=== PATIENT | male | born 1965 | race Two or more races ===

== ENCOUNTER 2024-06-04 10:53 | Emergency (ER) | payer OTHER ==
[~2024-06-04] VITALS: Ht 182.9 cm; Wt 117.0 kg
[~2024-06-04 10:53] MED LIST: CIPRO500 MG PO; FLECAINIDE ACET50 MG PO; MEDROLPACK PO; NORFLEX100MG PO; TOPROL XL50 M1 PO
[2024-06-04] MEDS ORDERED: ACETAMINOPHEN 500 MG GEL..CAP PO ONE ×2 (11:38→11:45)
== END 2024-06-04 13:52 | disposition home or self-care (01) ==
LOC: ER 10:53
DX: S46.211A Strain of muscle, fascia and tendon of other parts of biceps, right arm, initial encounter (principal); W18.39XA Other fall on same level, initial encounter; Y93.E9 Activity, other interior property and clothing maintenance; Y92.018 Other place in single-family (private) house as the place of occurrence of the external cause; Y99.9 Unspecified external cause status; I10 Essential (primary) hypertension; Z88.6 Allergy status to analgesic agent

== ENCOUNTER 2025-01-09 20:03 | Emergency (ER) | payer OTHER ==
[~2025-01-09] VITALS: Ht 182.9 cm; Wt 118.8 kg
[2025-01-09] MEDS ORDERED: CIPROFLOXACIN IN 5 % DEXTROSE 400 MG/200 ML PIGGYBAG IV ONE ×2 (20:42→20:45)
[2025-01-09] MEDS ORDERED: FAMOTIDINE/PF 20 MG/2 ML VIAL ONE (20:43)
[2025-01-09] MEDS ORDERED: METRONIDAZOLE/SODIUM CHLORIDE 500 MG/100 ML PIGGYBACK IV ONE ×2 (20:43→20:45)
[2025-01-09] MEDS ORDERED: 0.9 % SODIUM CHLORIDE 1,000 ML IV ONE (20:45)
[2025-01-09] MEDS ORDERED: FAMOtidine 10 MG/ML (4ML VIAL) IV ONE (20:45)
[2025-01-09 20:58] LABS: HEMATOCRIT 44.4 % (39.0-48.0); HEMOGLOBIN 15.2 g/dL (13-16.00); MEAN CELL VOLUME 92.3 fL (80.0-100.00); MEAN CORPUSCULAR HEMOGLOBIN 31.7 pg (27.00-32.0); MEAN CORPUSCULAR HGB CONC 34.4 g/dl (32.0-36.0); PLATELET COUNT 99 K/uL (150-450); RED BLOOD COUNT 4.81 M/uL (4.00-6.00); RED CELL DISTRIBUTION WIDTH 12.8 % (11.5-14.5)
[2025-01-09 21:22] LABS: ALBUMIN 3.5 gm/dL (3.4-5.0); BILIRUBIN TOTAL 0.57 mg/dL (0.3-1.2); CALCIUM 8.7 mg/dL (8.5-10.1); CREATININE SERUM 0.95 mg/dL (0.70-1.30); GFR 81.71; GLOBULINA 3.6 G/DL (2.4-3.5); POTASSIUM 3.39 mEq/L (3.5-5.1); TOTAL PROTEIN 7.1 gm/dL (6.4-8.2)
[2025-01-09 21:40] LABS: FECAL LEUKOCYTES POSITIVE (NEGATIVE); ob POSITIVE (NEGATIVE)
[2025-01-09] MEDS ORDERED: PROTONIX40 MG PO (22:30)
[2025-01-09] MEDS ORDERED: CIPRO500 MG PO (22:30)
[2025-01-09] MEDS ORDERED: METRONIDAZOLE500 MG PO (22:30)
[2025-01-09] MEDS ORDERED: PROBIOTIC1 EAC2 PO (22:30)
== END 2025-01-09 23:34 | disposition home or self-care (01) ==
LOC: ER 20:06
PROVIDERS: General Practice
DX: K52.89 Other specified noninfective gastroenteritis and colitis (principal); N28.1 Cyst of kidney, acquired; I10 Essential (primary) hypertension; Z88.6 Allergy status to analgesic agent